=== PATIENT | male | born 1955 | race Caucasian/White ===

== ENCOUNTER → 2018-01-27 | Outpatient (CLI) | payer OTHER, MEDICARE ==
[~2018-01-27] MED LIST: ACET500; Aspirin EC81 MG; CBD OIL; CLARITIN10 MG PO; GLIM4 PO; Glucophage1000 MG PO; HYDACE5 PO; IBUP400 PO; INSUASPI SC; INSULANI SC; INSULANPEN; LEVFLO500; LEVO-T75 MCG PO; LEVSOD75 PO; LIRA0.6P; LOPE2C PO; LOSARTAN POTAS100 MG PO; NAPR550 PO; Novolog Fl100 UNIT/1 INJ; PROM25 PO; Percocet 5-3251 EACH PO; ROSI4; TAMS.4ER PO
[2018-01-27 12:21] LABS: Protein, Urine Random 30.4 mg/dL (0.0-11.9)
== END | disposition home or self-care (01) ==
LOC: LAB SHORT 11:37 → LAB 11:37
PROVIDERS: Internal Medicine
DX: D64.9 Anemia, unspecified (principal); R80.9 Proteinuria, unspecified
CPT/HCPCS: 82570; 84156

== ENCOUNTER 2022-09-17 13:51 | Day surgery (SDC) | payer OTHER ==
[~2022-09-17] VITALS: Ht 188 cm; Wt 147.0 kg
[2022-09-17 17:19] VITALS: BP 121/66
== END 2022-09-17 17:22 | disposition home or self-care (01) ==
LOC: ORSCSDS 13:51
PROVIDERS: Internal Medicine Gastroenterology
PROC: 0D758ZZ Dilation of Esophagus, Via Natural or Artificial Opening Endoscopic (ICD-10-PCS; principal; 2022-09-17 15:15)
PROC: 0DBM8ZX Excision of Descending Colon, Via Natural or Artificial Opening Endoscopic, Diagnostic (ICD-10-PCS; principal; 2022-09-17 15:15)
PROC: 0DB98ZX Excision of Duodenum, Via Natural or Artificial Opening Endoscopic, Diagnostic (ICD-10-PCS; principal; 2022-09-17 15:15)
PROC: 0DB58ZX Excision of Esophagus, Via Natural or Artificial Opening Endoscopic, Diagnostic (ICD-10-PCS; principal; 2022-09-17 15:15)
PROC: 0DBN8ZX Excision of Sigmoid Colon, Via Natural or Artificial Opening Endoscopic, Diagnostic (ICD-10-PCS; principal; 2022-09-17 15:15)
PROC: 0DBL8ZX Excision of Transverse Colon, Via Natural or Artificial Opening Endoscopic, Diagnostic (ICD-10-PCS; principal; 2022-09-17 15:15)
PROC: 0DBK8ZX Excision of Ascending Colon, Via Natural or Artificial Opening Endoscopic, Diagnostic (ICD-10-PCS; principal; 2022-09-17 15:15)
DX: R13.10 Dysphagia, unspecified (principal); K22.2 Esophageal obstruction; Z12.11 Encounter for screening for malignant neoplasm of colon; Z86.010 Personal history of colon polyps; D12.5 Benign neoplasm of sigmoid colon; K63.5 Polyp of colon; D12.3 Benign neoplasm of transverse colon; D12.4 Benign neoplasm of descending colon; K57.30 Diverticulosis of large intestine without perforation or abscess without bleeding; K22.70 Barrett's esophagus without dysplasia; E11.22 Type 2 diabetes mellitus with diabetic chronic kidney disease; G47.30 Sleep apnea, unspecified; I12.9 Hypertensive chronic kidney disease with stage 1 through stage 4 chronic kidney disease, or unspecified chronic kidney disease; N18.31 Chronic kidney disease, stage 3a; E66.01 Morbid (severe) obesity due to excess calories; Z68.41 Body mass index [BMI] 40.0-44.9, adult; Z79.84 Long term (current) use of oral hypoglycemic drugs; Z79.4 Long term (current) use of insulin; Z79.899 Other long term (current) drug therapy
CPT/HCPCS: 82947; 88305; J0461; J2001; J2405; J2704; J7120; Q9968

== ENCOUNTER 2023-02-03 11:27 | Inpatient (IN) | payer OTHER ==
[~2023-02-03] VITALS: Ht 188 cm; Wt 149.7 kg
[2023-02-03 13:33] LABS: BASOPHILS ABSOLUTE AUTO 0.05 K/mm3 (0.00-0.23); BASOPHILS PERCENT AUTO 1 % (0-2); EOSINOPHILS ABSOLUTE AUTO 0.26 K/mm3 (0.00-0.68); EOSINOPHILS PERCENT AUTO 3 % (0-6); Hematocrit 30.6 % (37.0-53.0); Hemoglobin 10.4 g/dL (13.5-17.5); IMMATURE GRAN ABSOLUTE AUTO 0.02 K/mm3 (0.00-0.10); IMMATURE GRAN PERCENT AUTO 0 % (0-1); LYMPHOCYTES ABSOLUTE AUTO 1.88 K/mm3 (0.84-5.20); LYMPHOCYTES PERCENT AUTO 25 % (21-46); MONOCYTES ABSOLUTE AUTO 0.59 K/mm3 (0.16-1.47); MONOCYTES PERCENT AUTO 8 % (4-13); Mean Corpuscular HGB 31.7 pg (26.0-34.0); Mean Corpuscular Volume 93 fL (80-100); Mean Platelet Volume 9.5 fL (9.1-12.4); NEUTROPHILS ABSOLUTE AUTO 4.78 K/mm3 (1.96-9.15); NEUTROPHILS PERCENT AUTO 63 % (41-73); Platelet Count 174 K/mm3 (150-400); RDW Coefficient Variation 13.7 % (11.7-14.2); RDW Standard Deviation 47.1 fL (35.1-46.3); Red Blood Cell Count 3.28 M/mm3 (4.30-5.90); White Blood Cell Count 7.58 K/mm3 (4.00-11.30)
[2023-02-03 13:59] LABS: Albumin, Blood 3.7 g/dL (3.4-5.0); Albumin/Globulin Ratio 0.9 (0.8-1.8); Bilirubin, Total 0.2 mg/dL (0.1-1.0); Bun/Creatinine Ratio 17.9 (12.0-20.0); Calcium, Blood 9.5 mg/dL (8.5-10.1); Creatinine, Blood 1.62 mg/dL (0.60-1.20); Potassium, Blood 4.8 mmol/L (3.5-5.5); Total Protein, Blood 7.7 g/dL (6.4-8.2)
[2023-02-03 16:28] VITALS: BP 137/60
--- NOTE | 2023-02-03 16:47 | NUR ---
SHIFT SUMMARY [id number]. PT ARRIVED FROM ER, SCOOTED SELF FROM [facility]. PT DENIES PAIN AT THIS TIME, REPORTS PAIN IMPROVED SINCE HE GOT A MEDICATION IN OR. CURRENTLY RESTING IN BED WITH CALL LIGHT IN REACH. PLAN IS FOR PATIENT TO BE NPO AT MIDNIGHT FOR PROCEDURE IN THE AM.
[2023-02-03 19:37] VITALS: BP 111/76
[2023-02-04 04:19] VITALS: BP 120/61
[2023-02-04 04:58] LABS: BASOPHILS ABSOLUTE AUTO 0.03 K/mm3 (0.00-0.23); BASOPHILS PERCENT AUTO 1 % (0-2); EOSINOPHILS ABSOLUTE AUTO 0.26 K/mm3 (0.00-0.68); EOSINOPHILS PERCENT AUTO 4 % (0-6); Hematocrit 31.2 % (37.0-53.0); Hemoglobin 10.5 g/dL (13.5-17.5); IMMATURE GRAN ABSOLUTE AUTO 0.02 K/mm3 (0.00-0.10); IMMATURE GRAN PERCENT AUTO 0 % (0-1); LYMPHOCYTES ABSOLUTE AUTO 1.92 K/mm3 (0.84-5.20); LYMPHOCYTES PERCENT AUTO 30 % (21-46); MONOCYTES ABSOLUTE AUTO 0.56 K/mm3 (0.16-1.47); MONOCYTES PERCENT AUTO 9 % (4-13); Mean Corpuscular HGB 31.2 pg (26.0-34.0); Mean Corpuscular HGB Conc 33.7 g/dL (31.5-36.5); Mean Corpuscular Volume 93 fL (80-100); Mean Platelet Volume 9.5 fL (9.1-12.4); NEUTROPHILS ABSOLUTE AUTO 3.63 K/mm3 (1.96-9.15); NEUTROPHILS PERCENT AUTO 57 % (41-73); Platelet Count 194 K/mm3 (150-400); RDW Coefficient Variation 13.7 % (11.7-14.2); RDW Standard Deviation 45.9 fL (35.1-46.3); Red Blood Cell Count 3.37 M/mm3 (4.30-5.90); White Blood Cell Count 6.42 K/mm3 (4.00-11.30)
--- NOTE | 2023-02-04 05:24 | NUR ---
SHIFT SUMMARY NO ACUTE CHANGES TO REPORT OVERNIGHT, PT HAS RESTED T/O THE NIGHT. PT DENIES PAIN. PT HAS BEEN BEDREST. LEFT LEG WITHOUT SWELLING OR SKIN CHANGES. PT REPORTS NEUROPATHY AT BASELINE. VITALS ARE STABLE. PT HAS BEEN NPO SINCE MIDNIGHT FOR PROCEDURE TODAY. BED IN LOWEST POSITION, CALL LIGHT WITHIN REACH.
[2023-02-04 05:50] LABS: International Normalized Ratio 1.01; Prothrombin Time Results 10.6 Sec (9.7-11.5)
[2023-02-04 05:51] LABS: Albumin, Blood 3.7 g/dL (3.4-5.0); Albumin/Globulin Ratio 0.9 (0.8-1.8); Bilirubin, Total 0.4 mg/dL (0.1-1.0); Bun/Creatinine Ratio 18.8 (12.0-20.0); Calcium, Blood 9.6 mg/dL (8.5-10.1); Creatinine, Blood 1.7 mg/dL (0.60-1.20); Globulin, Blood 3.9 g/dL (2.2-4.0); Magnesium, Blood 2.1 mg/dL (1.6-2.4); Phosphorus, Blood 4.5 mg/dL (2.5-4.9); Potassium, Blood 4.6 mmol/L (3.5-5.5); Total Protein, Blood 7.6 g/dL (6.4-8.2)
[2023-02-04 07:29] VITALS: BP 127/83
--- NOTE | 2023-02-04 15:46 | NUR ---
SHIFT SUMMARY: LEFT HIP FX PATIENT IS A&OX4. VS ARE WNL AND IS ON RA. PAIN IS MANAGED WITH PO TRAMADOL. PATIENT DENIES NUMBNESS OR TINGLING IN ALL EXTREMITIES. CAN MOVE ALL FINGERS AND TOES WHEN ASKED. HE IS TOLERATING PO INTAKE AND IS VOIDING. PATIENT IS TO BE NPO AFTER MIDNIGHT TONIGHT FOR POSSIBLE SURGERY TOMORROW.
[2023-02-04 16:35] LABS: Source, Urine Voided
[2023-02-04 16:44] LABS: Appearance, Urine Clear (Clear); Bilirubin, Urine Neg (Neg); Blood, Urine Neg (Neg); Glucose Qualitative, Urine Neg (Neg); Ketones, Urine Neg (Neg); Leukocyte Esterase, Urine Neg (Neg); Nitrite, Urine Neg (Neg); Protein, Urine Neg (Neg); Urobilinogen, Urine NORM (Normal)
[2023-02-04 16:53] LABS: Color, Urine Pale Yellow (P-Yellow)
[2023-02-04 19:48] VITALS: BP 129/68
--- NOTE | 2023-02-04 20:40 | NUR ---
HEPARIN PT TO GO IN FOR POSSIBLE PROCEDURE TOMORROW. SPOKE WITH PROVIDER REGARDING 2100 SC HEPARIN. HE STATES OK TO GIVE 2100 HEPARIN TONIGHT.
[2023-02-05] VITALS (26 sets, daily range): BP systolic 92–145; BP diastolic 58–83
--- NOTE | 2023-02-05 04:33 | NUR ---
SHIFT SUMMARY NO ACUTE CHANGES TO REPORT OVERNIGHT, PT HAS RESTED T/O THE SHIFT. MEDICATED PER EMAR FOR PAIN. VITALS STABLE. PT NPO SINCE MIDNIGHT, PREOP WASH DONE. BED IN LOWEST POSITION, CALL LIGHT WITHIN REACH.
[2023-02-05 06:16] LABS: Percent Saturation 27.7 % (20.0-50.0)
--- NOTE | 2023-02-05 14:26 | NUR ---
Spoke with Dr Paez this AM and discussed case. 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 Pt resting in bed and is A&OX4. Pt reports mild discomfort but manageable. Offered therapeutic listening as Pt discusses plan. He reports some anxiety due to the new findings. Reports plan to deal with new findings one step at a time. He has already made an appointment to see his urologist next week. Continued therapeutic listening as he reports experiencing some depression for quite some time. 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 Day surgery arrives to take Pt to OR. Pt agreeable to continued PC visits. Spoke with Dr Paez regarding Pt's depression. Dr Paez will consider starting anti depressant. Palliative Care will remain available
[2023-02-06 04:41] VITALS: BP 99/51
[2023-02-06 04:42] VITALS: BP 95/54
[2023-02-06 05:44] LABS: Albumin, Blood 3.4 g/dL (3.4-5.0); Anion Gap 8 mmol/L (6-16); Blood Urea Nitrogen 32 mg/dL (8-24); Bun/Creatinine Ratio 17.9 (12.0-20.0); CO2, Blood 21 mmol/L (21-32); Chloride, Blood 107 mmol/L (98-108); Creatinine, Blood 1.79 mg/dL (0.60-1.20); Glomerular Filtration Rate 41 (60-); Glucose, Blood 227 mg/dL (70-99); Potassium, Blood 4.9 mmol/L (3.5-5.5); Sodium, Blood 136 mmol/L (136-145)
--- NOTE | 2023-02-06 05:51 | NUR ---
SHIFT SUMMARY POD1 LEFT HIP PINNING. INCISIONS REMAINS C/D/I. SENSATION AND CIRCULATION REMAINS INTACT. PT DID NOT AMBULATE T/O THE NIGHT. PT REPORTED HE WANTED TO REST UP FOR HIS TIME WITH PT TODAY. MEDICATED FOR PAIN ONCE WITH TRAMADOL, PT REPORTS THIS MEDICATION DOES HELP THE PAIN BUT HE IS UNABLE TO SLEEP WITH THIS MEDICATION. PT REPORTS HE WOULD PREFER TO CHANGE THIS TODAY IF POSSIBLE. PT VOIDING W/O DIFFICULTY. MILD HYPOTENTION NOTED, IV FLUIDS RESTARTED. PT REMAINS ASYMPTOMATIC. NO ACUTE EVENTS NOTED.
[2023-02-06 05:54] VITALS: BP 102/65
[2023-02-06 07:24] VITALS: BP 116/62
--- NOTE | 2023-02-06 11:56 | NUR ---
"Spiritual Care Visit | Nurse Request Pt. is awake in bed when he welcomes my visit. Pt. is pleasant. Facilitate a life review and establish rapport. Pt. displays evidence of of being intentional, aware and engaged in what he will need for his health in the future. Listened with empathy and a calming ppresence. Pt. verbalized gratitude for the spiritual care visit."
[2023-02-06 14:32] VITALS: BP 102/54
--- NOTE | 2023-02-06 14:45 | NUR ---
TELEPHONE CALL WITH DR PATRICK RE THERAPY CLEARED PT TO DC WITH , WITH HER APPROVAL HOSPITALIST WILL DC PATIENT. DR PATRICK STATED OK TO DC FROM HER STANDPOINT WITH FU 1 MONTH.
[2023-02-06] MEDS ORDERED: ATOR10 PO (15:12)
[2023-02-06] MEDS ORDERED: ONDA4ODT SL (15:13)
[2023-02-06] MEDS ORDERED: PREG150 PO (15:13)
[2023-02-06] MEDS ORDERED: Norco 5-325 Ta1 EACH PO (15:13)
--- NOTE | 2023-02-06 16:24 | NUR ---
DISCHARGE SUMMARY PT A&OX4, VSS/RA, RAUDEL PO, VOIDING, AMB SBA FWW, PAIN MANAGED WITH NORCO, DRESSED WITH ASSIST, IVs DC'D, AQUACEL DRESSINGS APPLIED. DC INS PROVIDED. PT AND REP UNDERSTANDING THOSE INSTRUCTIONS INCLUDING WEEKLY DRESSING CHANGES, OK TO SHOWER, HOME HEALTH/PHYSICAL THERAPY, FU WITH PCP, HYACINTH LAZO X 1 MO, FU APPOINTMENTS. LEFT FLOOR VIA WC WITH TOY CONSULTANT TO GO HOME WITH WITH ALL PERSONAL POSSESSIONS INCLUDING 1 NARC SCRIPT; REP HAVING ALL DME EQUIP NEEDED FOR HOME.
== END 2023-02-06 16:03 | disposition home health service (06) | DRG 481 ==
LOC: ER 11:27 → SURS 14:44
PROVIDERS: Family Medicine; Hospitalist; Orthopaedic Surgery; ADMIT Family Medicine
PROC: 0QH736Z Insertion of Intramedullary Internal Fixation Device into Left Upper Femur, Percutaneous Approach (ICD-10-PCS; principal; 2023-02-05 15:45)
DX: M89.552 Osteolysis, left thigh (principal); C64.1 Malignant neoplasm of right kidney, except renal pelvis; Z68.41 Body mass index [BMI] 40.0-44.9, adult; I12.9 Hypertensive chronic kidney disease with stage 1 through stage 4 chronic kidney disease, or unspecified chronic kidney disease; G47.33 Obstructive sleep apnea (adult) (pediatric); R91.1 Solitary pulmonary nodule; N18.32 Chronic kidney disease, stage 3b; E66.9 Obesity, unspecified; M19.90 Unspecified osteoarthritis, unspecified site; E11.40 Type 2 diabetes mellitus with diabetic neuropathy, unspecified; N40.0 Benign prostatic hyperplasia without lower urinary tract symptoms; E03.9 Hypothyroidism, unspecified; Z79.890 Hormone replacement therapy; Z79.4 Long term (current) use of insulin; Z79.84 Long term (current) use of oral hypoglycemic drugs; Z85.528 Personal history of other malignant neoplasm of kidney; Z90.5 Acquired absence of kidney
CPT/HCPCS: 36415; 71260; 73552; 73562-LT; 73700; 74177; 77075; 80053; 80069; 81003; 82570; 82947; 83540; 83550; 83735; 84100; 84156; 85025; 85610; 86850; 86900; 86901; 86923; 93005; 93010; 94660; 94762; 96374; 97110; 97116; 97161; 97166; 97535; 99285-25; A9270; C1713; C1769; J0690; J1100; J1170; J1644; J1815; J1885; J2405; J2704; J2765; J3010; J7120; Q9967

== ENCOUNTER 2025-01-12 13:38 | Day surgery (SDC) | payer MEDICARE, BC ==
[~2025-01-12] VITALS: Ht 188 cm; Wt 132.6 kg
[~2025-01-12 13:38] MED LIST changes: +ATOR10 PO; +Glycopyrrolate 0.2 MG/ML 1MLVIAL ONE; +Norco 5-325 Ta1 EACH PO; +ONDA4ODT SL; +Ondansetron HCl 2 MG / ML 2ML Vial ONE; +PREG150 PO; +ePHEDrine Sulfate 50 MG/ML 1ML Injection ONE
[2025-01-12] MEDS ORDERED: JARDIANCE25 MG (13:59)
[2025-01-12] MEDS ORDERED: REGLAN1013 (14:00)
[2025-01-12] MEDS ORDERED: OZEMPIC2 MG/0.75 (14:00)
[2025-01-12] MEDS ORDERED: OXYC10TA19 (14:01)
[2025-01-12] MEDS ORDERED: NOVOLIN N100 UNIT/2 (14:01)
[2025-01-12] MEDS ORDERED: TRAZ50 (14:03)
[2025-01-12] MEDS ORDERED: KEYTRUDA100 MG/41 (14:04)
[2025-01-12] MEDS ORDERED: FIASP 100100 UNIT/3 (14:04)
[2025-01-12] MEDS ORDERED: Lidocaine HCl 4% 5 ML SDA ONE (14:06)
[2025-01-12] MEDS ORDERED: [UNRECOGNIZED DRUG - OTHER] (14:07)
[2025-01-12] MEDS ORDERED: Ketamine HCl 100 MG / ML 5ML Vial ONE (14:42)
[2025-01-12 15:56] VITALS: BP 94/75
== END 2025-01-12 15:36 | disposition home or self-care (01) ==
LOC: ORSCSDS 13:38
PROVIDERS: Internal Medicine Gastroenterology
PROC: 0D758ZZ Dilation of Esophagus, Via Natural or Artificial Opening Endoscopic (ICD-10-PCS; principal; 2025-01-12 15:00)
DX: R13.10 Dysphagia, unspecified (principal); K22.2 Esophageal obstruction; G47.33 Obstructive sleep apnea (adult) (pediatric); E66.01 Morbid (severe) obesity due to excess calories; Z68.39 Body mass index [BMI] 39.0-39.9, adult; E11.22 Type 2 diabetes mellitus with diabetic chronic kidney disease; N18.9 Chronic kidney disease, unspecified
CPT/HCPCS: 82947; C1726; J0461; J2003; J2405; J2704; J7120